=== PATIENT | female | born 1990 | race African-American/Black ===

== ENCOUNTER → 2016-12-25 | Outpatient (REF) | payer OTHER | LOC: M LAB REF 14:39 | PROVIDERS: ATTEND Advanced Practice Midwife | DX: Z11.3 Encounter for screening for infections with a predominantly sexual mode of transmission (principal) ==

== ENCOUNTER 2018-04-12 21:24 | Emergency (ER) | payer SELFPAY, OTHER ==
[2018-04-12] MEDS: ONDANSETRON 4 MG ORAL DISINTEGRATING TAB (Q0162 PER 1MG) PO (22:23)
[2018-04-12] MEDS: ACETAMINOPHEN 325 MG TAB PO (22:36)
[2018-04-13] MEDS: NS 1,000 ML IV (00:18)
[2018-04-13] MEDS: METOCLOPRAMIDE INJ 10MG/2ML VIAL (J2765) IV (00:18)
[2018-04-13] MEDS: ONDANSETRON 4 MG ORAL DISINTEGRATING TAB (Q0162 PER 1MG) PO (00:45)
== END 2018-04-13 00:56 | disposition home or self-care (01) ==
LOC: M ED 04-13 00:56
DX: R11.2 Nausea with vomiting, unspecified (principal); R51 Headache; Z79.3 Long term (current) use of hormonal contraceptives
CPT/HCPCS: Q0162

== ENCOUNTER → 2019-08-17 | Outpatient (REF) | payer OTHER ==
[~2019-08-17] MED LIST: DEPO150I IM; ZOFR4TAB14 PO
[2019-08-17 15:13] LABS: CHLAMYDIA DNA AMPLIFICATION NEGATIVE (NEGATIVE); GC DNA AMPLIFICATION NEGATIVE (NEGATIVE)
== END ==
LOC: M LAB REF 13:37
PROVIDERS: ATTEND Advanced Practice Midwife
DX: Z11.3 Encounter for screening for infections with a predominantly sexual mode of transmission (principal)

== ENCOUNTER → 2021-02-14 | Outpatient (REF) | payer OTHER ==
[2021-02-14 13:52] LABS: FREE T4 0.89 NG/DL (0.76-1.46); THYROID STIMULATING HORMONE 0.249 uIU/ML (0.358-3.740)
[2021-02-14 13:56] LABS: HCG, SERUM QUALITATIVE NEGATIVE (NEGATIVE)
== END ==
LOC: M PLALAB 10:27
PROVIDERS: ATTEND Advanced Practice Midwife
DX: N92.6 Irregular menstruation, unspecified (principal)

== ENCOUNTER → 2021-02-25 | Outpatient (CLI) | payer OTHER ==
--- NOTE | 2021-02-26 04:44 | REP ---
INDICATION: IRREGLAR MENSES N92.6 COMPARISON: None. TECHNIQUE: Transabdominal pelvic ultrasound followed by transvaginal examination for better evaluation of the endometrium and adnexa with color Doppler evaluation of the ovaries. FINDINGS: Bladder is unremarkable and measures 9.0 x 6.5 x 7.7 cm. Heterogeneous anteverted uterus measures 8.3 x 3.5 x 4.3 cm and includes 1.5 x 1.4 x 1.6 cm left intramural/submucosal fibroid. The endometrial complex measures 13 mm thickness. Bilateral ovaries are normal in appearance and vascularity without evidence for torsion. Right ovary measures 6.5 x 2.0 x 3.7 cm and includes 3.7 x 1.8 x 3.0 cm septated complex likely physiologic cyst; R I = 0.59. Left ovary measures 4.2 x 2.3 x 2.4 cm with 2.4 cm dominant follicle; R I = 0.55. No pelvic fluid or adnexal mass lesion. IMPRESSION: 1. 1.6 cm submucosal fibroid. 2. Complex septated 3.7 cm right ovarian cyst and 2.4 cm presumed left dominant follicle likely physiologic. Consider follow-up examination in 4-6 weeks to evaluate for resolution. <Electronically signed by Deonte Renee > 02/26/21 [id number]
== END ==
LOC: M WHC 09:29
PROVIDERS: ATTEND Advanced Practice Midwife
DX: D25.0 Submucous leiomyoma of uterus (principal); N92.6 Irregular menstruation, unspecified; N83.201 Unspecified ovarian cyst, right side

== ENCOUNTER → 2021-03-19 | Outpatient (CLI) | payer OTHER ==
--- NOTE | 2021-03-20 05:38 | REP ---
INDICATION: N92.6 IRREG MENSES COMPARISON: 02/25/2021 TECHNIQUE: Transabdominal pelvic ultrasound followed by transvaginal examination for better evaluation of the endometrium and adnexa with color Doppler evaluation of the ovaries. FINDINGS: Bladder is unremarkable and measures 4.7 x 2.8 x 1.7 cm. Heterogeneous uterus measures 7.6 x 3.4 x 4.0 cm and again includes 1.4 cm left intramural fibroid. The endometrial complex measures 8 mm thickness. The left ovary measures 3.7 x 2.1 x 3.8 cm (RI 0.53) and demonstrates multiple follicles with the previously noted presumed dominant follicle having resolved. Current examination demonstrates tubular structures in the left adnexa which were not identified on prior examination and may represent hydrosalpinx. The right ovary measures 4.0 x 1.9 x 2.4 cm (RI 0.58) and the irregular anechoic structure with septations is again identified measuring roughly 2.6 x 1.7 x 2.5 cm. This may also be adjacent to the right ovary and possibly represent hydrosalpinx as well. No pelvic free fluid or adnexal mass lesion otherwise appreciated. IMPRESSION: 1. Stable appearance of the uterus with 1.4 cm intramural fibroid. 2. Tubular structures in the left adnexa now identified and previously noted irregular anechoic septated structure in the right ovary/adnexa remains stable. These findings may represent hydrosalpinx. Consider contrast-enhanced CT or noncontrast pelvic MRI for further investigation. <Electronically signed by Deonte Renee > 03/20/21 [id number]
== END ==
LOC: M WHC 13:07
PROVIDERS: ATTEND Advanced Practice Midwife
DX: N92.6 Irregular menstruation, unspecified (principal); D25.1 Intramural leiomyoma of uterus